=== PATIENT | female | born 1995 | race American Indian/Alaskan Native ===

== ENCOUNTER 2017-01-18 10:51 | Outpatient (CLI) | payer SELFPAY ==
[2017-01-18] MEDS ORDERED: LACTATED RINGERS 500 ML IV ONE (11:40)
[2017-01-18 12:20] LABS: Bilirubin,Urine NEG (Negative); Blood,Urine NEG (Negative); Ketones,Urine NEG (Negative); Leukocyte Esterase,Urine NEG (Negative); Mucus,Urine 1+ /HPF; Nitrite,Urine NEG (Negative); Protein,Urine <15 mg/dL mg/dL (Negative); Urobilinogen,Urine < 2.0 mg/dL (<2.0)
[2017-01-18 12:34] VITALS: BP 108/65
== END 2017-01-18 13:34 | disposition home or self-care (01) ==
LOC: TRG 10:51
PROVIDERS: ATTEND Obstetrics & Gynecology
DX: O47.03 False labor before 37 completed weeks of gestation, third trimester (principal); Z3A.33 33 weeks gestation of pregnancy
CPT/HCPCS: 59025; 81001; J7120

== ENCOUNTER 2017-02-01 22:36 | Outpatient (CLI) | payer MEDICAID ==
[2017-02-01 23:10] VITALS: BP 106/64
[2017-02-01 23:18] LABS: Urine Drugs of Abuse Note Disclamer
[2017-02-01] MEDS ORDERED: LACTATED RINGERS 1,000 ML ONE (23:27)
[2017-02-01 23:33] LABS: Bilirubin,Urine NEG (Negative); Blood,Urine SM (Negative); Ketones,Urine NEG (Negative); Leukocyte Esterase,Urine NEG (Negative); Mucus,Urine FEW /HPF; Nitrite,Urine NEG (Negative); Protein,Urine <15 mg/dL mg/dL (Negative); Urobilinogen,Urine < 2.0 mg/dL (<2.0)
[2017-02-01 23:54] LABS: Hematocrit 33.9 % (30.3-42.9); Hemoglobin 11.3 gm/dl (10.1-14.3); Mean Corpuscular HGB Conc 33 % (30-34); Mean Corpuscular Hemoglobin 27 pg (28-32); Mean Corpuscular Volume 82 fl (79-97); Platelet Count 272 K/mm3 (140-440); Red Blood Count 4.12 M/mm3 (3.65-5.03); Red Cell Distribution Width 15.4 % (13.2-15.2); White Blood Count 11.6 K/mm3 (4.5-11.0)
[2017-02-02 00:20] LABS: HIV-1 Antigen p24 Non React (Non React); HIVR-1/2 Ab Non React (Non React)
[2017-02-02] MEDS ORDERED: LACTATED RINGERS 1,000 ML ONE (00:37)
[2017-02-02] MEDS ORDERED: LACTATED RINGERS 1,000 ML IV ONE (00:47)
[2017-02-02] MEDS ORDERED: LACTATED RINGERS 1,000 ML IV SCH (01:00)
[2017-02-02 01:01] LABS: Basophils % (Manual) 0 % (0.0-1.8); Blastocytes % (Manual) 0 %
[2017-02-02 01:02] LABS: Anisocytosis Few; Diff Status Complete
--- NOTE | 2017-02-02 08:03 | Ultrasound Report ---
BIOPHYSICAL PROFILE: INDICATION: well being. COMPARISON: None similar at this institution. TECHNIQUE: Transabdominal ultrasound with Doppler interrogation. 2 - breathing movements 2 - movements 2 - posture and tone 2 - Qualitative amniotic fluid volume 8 - TOTAL SCORE OF POSSIBLE 8 Heart Rate (bpm) 175
== END 2017-02-02 01:40 | disposition home or self-care (01) ==
LOC: TRG 22:36
PROVIDERS: ATTEND Obstetrics & Gynecology
DX: O47.03 False labor before 37 completed weeks of gestation, third trimester (principal); Z3A.36 36 weeks gestation of pregnancy
CPT/HCPCS: 36415; 59025; 76819; 80307; 81001; 85007; 85025; 85660; 86592; 86706; 86762; 86803; 86850; 86900; 86901; 87806; 96360; 96361; J7120

== ENCOUNTER 2017-02-10 14:29 | Outpatient (CLI) | payer MEDICAID ==
[2017-02-10] MEDS ORDERED: LACTATED RINGERS 1,000 ML ONE (18:08)
[2017-02-10] MEDS ORDERED: LACTATED RINGERS 1,000 ML IV ONE (19:00)
[2017-02-10 21:25] VITALS: BP 109/61
== END 2017-02-10 20:56 | disposition home or self-care (01) ==
LOC: TRG 14:29 → LD 14:32 → TRG 20:56
PROVIDERS: ATTEND Obstetrics & Gynecology
DX: O47.1 False labor at or after 37 completed weeks of gestation (principal); Z3A.38 38 weeks gestation of pregnancy
CPT/HCPCS: 59025; 85460; 85461; 86850; 86900; 86901; 87116; J2790; J7120

== ENCOUNTER 2017-02-17 21:34 | Outpatient (CLI) | payer MEDICAID ==
[2017-02-17 22:07] VITALS: BP 117/59
[2017-02-18] MEDS ORDERED: VISTARIL PO ONE (00:50)
== END 2017-02-18 01:00 | disposition home or self-care (01) ==
LOC: TRG 21:34
PROVIDERS: ATTEND Obstetrics & Gynecology Gynecology
DX: O42.92 Full-term premature rupture of membranes, unspecified as to length of time between rupture and onset of labor (principal); O26.893 Other specified pregnancy related conditions, third trimester; R10.30 Lower abdominal pain, unspecified; Z3A.39 39 weeks gestation of pregnancy
CPT/HCPCS: Q0177

== ENCOUNTER 2017-02-18 04:54 | Inpatient (IN) | payer MEDICAID ==
[2017-02-18] MEDS ORDERED: SUBLIMAZE IV PRN (05:36)
[2017-02-18] MEDS ORDERED: MINERAL OIL PO PRN (05:36)
[2017-02-18] MEDS ORDERED: ePHEDrine SULFATE IV PRN ×2 (05:36→08:30)
[2017-02-18] MEDS ORDERED: XYLOCAINE 2% INFILTRATI ONE ×2 (05:36→11:51)
[2017-02-18] MEDS ORDERED: BRETHINE SUB-Q PRN (05:36)
[2017-02-18] MEDS ORDERED: ZOFRAN IV PRN ×2 (05:36→12:19)
[2017-02-18] MEDS ORDERED: BRETHINE IVP PRN (05:36)
[2017-02-18] MEDS ORDERED: PITOCin/NS 30 UNIT/500ML 30 UNITS/500 ML BAG IV SCH (06:00)
[2017-02-18] MEDS ORDERED: PITOCin/NS 20 UNIT/1000ML DRIP 20 UNITS/1,000 ML BAG IV SCH ×2 (06:00→13:00)
[2017-02-18] MEDS: LACTATED RINGERS 1,000 ML IV SCH ×3 (06:08→10:49)
[2017-02-18 06:12] LABS: Hematocrit 35.4 % (30.3-42.9); Hemoglobin 11.4 gm/dl (10.1-14.3); Mean Corpuscular HGB Conc 32 % (30-34); Mean Corpuscular Hemoglobin 26 pg (28-32); Mean Corpuscular Volume 82 fl (79-97); Platelet Count 288 K/mm3 (140-440); Red Blood Count 4.35 M/mm3 (3.65-5.03); Red Cell Distribution Width 16.3 % (13.2-15.2); White Blood Count 12.9 K/mm3 (4.5-11.0)
--- NOTE | 2017-02-18 07:02 | History and Physical Report ---
History of Present Illness Date of examination: 02/18/17 Date of admission: 02/18/17 06:13 Chief complaint: Painful contractions History of present illness: 21-year-old 001 at 39 weeks presents with above complaints and issues, she had care per patient in [place]. Patient complains initial care was unremarkable. She presented to this hospital 1 month ago and had labs obtained a GBS which was negative. She is Rh- and received a RhoGAM shot. 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 denies: smoking, alcohol abuse, prescription drug abuse, IV drug use - Obstetrical History Expected Date of Delivery: 02/23/17 Actual Gestation: 39 Week(s) 2 Day(s) : 2 Para: 1 Medications and Allergies Allergies Allergy/AdvReac Type Severity Reaction Status Date / Time No Known Allergies Allergy Verified 02/01/17 22:50 Active Meds: Active Medications Fentanyl (Sublimaze) 100 mcg IV Q2H PRN PRN Reason: Labor Pain Last Admin: 02/18/17 06:09 Dose: 100 mcg Lactated Ringer's (Lactated Ringers) 1,000 mls @ 125 mls/hr IV DIRECT MICHELL Last Admin: 02/18/17 06:11 Dose: 125 mls/hr Oxytocin/Sodium Chloride (Pitocin/Ns 20 Unit/1000ml Drip) 20 units in 1,000 mls @ 125 mls/hr IV DIRECT MICHELL Oxytocin/Sodium Chloride (Pitocin/Ns 30 Unit/500ml) 30 units in 500 mls @ 1 mls /hr IV TITR MICHELL; 1 MILLIUNITS/MIN PRN Reason: Protocol Mineral Oil (Mineral Oil) 30 ml PO QHS PRN PRN Reason: Constipation Ondansetron HCl (Zofran) 4 mg IV Q8H PRN PRN Reason: Nausea And Vomiting Review of Systems Constitutional: no fever, no chills, no fatigue, no weakness Cardiovascular: no chest pain, no orthopnea, no syncope, no lightheadedness, no shortness of breath, no dyspnea on exertion, no high blood pressure Respiratory: no cough with sputum, no shortness of breath, no dyspnea on exertion Gastrointestinal: abdominal pain (Painful contractions), no nausea, no vomiting Genitourinary: no vaginal bleeding, no vaginal discharge, no leakage of fluid, no dysuria - Vital Signs Vital signs: Vital Signs Temp Pulse Resp BP 98.4 F 102 H 18 113/64 02/18/17 04:59 02/18/17 04:59 02/18/17 04:59 02/18/17 04:59 Temp Pulse Resp BP Pulse Ox 98.6 F 104 H 18 118/71 99 02/18/17 06:05 02/18/17 06:50 02/18/17 06:09 02/18/17 06:05 02/18/17 06:50 - Physical Exam Cardiovascular: Regular rate, Normal S1, Normal S2 Lungs: Positive: Clear to auscultation, Normal air movement Abdomen: Positive: normal appearance, soft. Negative: distention, tenderness, guarding, rigidity Genitourinary (Female): Positive: normal external genitalia Uterus: Positive: enlarged (EFW ~ 3600) Extremities: Positive: normal - Obstetrical FHR: category 1 Cervical Dilatation: 6 (Per RN ) Results Result Diagrams: 02/18/17 05:45 Abnormal lab results 02/18/17 Range/Units 05:45 WBC 12.9 H (4.5-11.0) K/mm3 MCH 26 L (28-32) pg RDW 16.3 H (13.2-15.2) % All other labs normal. Assessment and Plan A: 21 at 39+2 wks in active labour -Cat 1 tracing P: -Admit -Routine labs -Epidural when necessary -Expectant management -Anticipate normal vaginal delivery - Patient Problems (1) 39 weeks gestation of Current Visit: Yes Status: Acute (2) Active labor at term Current Visit: Yes Status: Acute
[2017-02-18] MEDS ORDERED: fentaNYL-BUPIV 2 MCG/ML-0.125% 200 MCG/100 ML BAG EPIDURAL ONE (07:35)
--- NOTE | 2017-02-18 08:11 | Anesthesia Day of Surgery ---
Anesthesia Day of Surgery - Day of Surgery Patient Examined: Yes Patient H&P Reviewed: Yes Patient is NPO: Yes
--- NOTE | 2017-02-18 08:11 | Anesthesia Consultation ---
Anesthesia Consult and Med Hx Date of service: 02/18/17 - Airway Anesthetic Teeth Evaluation: Good ROM Head & Neck: Adequate Mental/Hyoid Distance: Adequate Mallampati Class: Class II Intubation Access Assessment: Probably Good - Pre-Operative Health Status ASA Pre-Surgery Classification: ASA2 Proposed Anesthetic Plan: Epidural, Spinal - Pulmonary Hx Asthma: No - Cardiovascular System Hx Hypertension: No - Central Nervous System Hx Seizures: No Hx Psychiatric Problems: Yes (ANXIETY) - Endocrine Hx Renal Disease: No Hx Hypothyroidism: No Hx Hyperthyroidism: No - Hematic Hx Anemia: No Hx Sickle Cell Disease: No - Other Systems Hx Alcohol Use: No
[2017-02-18] MEDS ORDERED: fentaNYL-BUPIV 2 MCG/ML-0.125% 200 MCG/100 ML BAG EPIDURAL SCH (09:00)
[2017-02-18] MEDS ORDERED: NARCAN 2 MG/2 ML IV PRN (09:00)
--- NOTE | 2017-02-18 10:50 | Progress Note ---
Assessment and Plan A: 21 at 39+2 wks in active labour -Cat 1 tracing P: -Start Pit -Anticipate - Patient Problems (1) 39 weeks gestation of Current Visit: Yes Status: Acute (2) Active labor at term Current Visit: Yes Status: Acute Subjective - Subjective Date of service: 02/18/17 Interval history: No significant cervical change, ~ 7-8/60/0 Patient reports: movement normal, contractions, no vaginal bleeding Objective - Vital Signs Vital Signs: Vital Signs - 12hr 02/18/17 02/18/17 02/18/17 04:59 06:05 06:09 Temperature 98.4 F 98.6 F Pulse Rate 102 H 108 H Pulse Rate [ 108 H Left From Monitor] Respiratory 18 18 18 Rate Blood Pressure 113/64 118/71 Blood Pressure 118/71 [Right Arm] O2 Sat by Pulse 98 Oximetry 02/18/17 02/18/17 02/18/17 06:10 06:15 06:20 Temperature Pulse Rate 107 H 93 H 104 H Pulse Rate [ Left From Monitor] Respiratory Rate Blood Pressure Blood Pressure [Right Arm] O2 Sat by Pulse 96 97 96 Oximetry 02/18/17 02/18/17 02/18/17 06:25 06:30 06:35 Temperature Pulse Rate 96 H 93 H 95 H Pulse Rate [ Left From Monitor] Respiratory Rate Blood Pressure Blood Pressure [Right Arm] O2 Sat by Pulse 97 97 96 Oximetry 02/18/17 02/18/17 02/18/17 06:40 06:45 06:50 Temperature Pulse Rate 94 H 89 104 H Pulse Rate [ Left From Monitor] Respiratory Rate Blood Pressure Blood Pressure [Right Arm] O2 Sat by Pulse 97 97 99 Oximetry 02/18/17 02/18/17 02/18/17 06:55 07:00 07:05 Temperature Pulse Rate 98 H 96 H 104 H Pulse Rate [ Left From Monitor] Respiratory Rate Blood Pressure Blood Pressure [Right Arm] O2 Sat by Pulse 100 99 98 Oximetry 02/18/17 02/18/17 02/18/17 07:10 07:15 07:20 Temperature Pulse Rate 115 H 100 H 96 H Pulse Rate [ Left From Monitor] Respiratory Rate Blood Pressure Blood Pressure [Right Arm] O2 Sat by Pulse 100 99 98 Oximetry 02/18/17 02/18/17 02/18/17 07:25 07:30 07:35 Temperature Pulse Rate 91 H 96 H 96 H Pulse Rate [ Left From Monitor] Respiratory Rate Blood Pressure Blood Pressure [Right Arm] O2 Sat by Pulse 97 99 98 Oximetry 02/18/17 02/18/17 02/18/17 07:40 07:45 07:50 Temperature Pulse Rate 98 H 100 H 105 H Pulse Rate [ Left From Monitor] Respiratory Rate Blood Pressure Blood Pressure [Right Arm] O2 Sat by Pulse 99 99 100 Oximetry 02/18/17 02/18/17 02/18/17 07:55 08:00 08:04 Temperature 98.2 F Pulse Rate 109 H 100 H 96 H Pulse Rate [ Left From Monitor] Respiratory Rate Blood Pressure 117/69 Blood Pressure [Right Arm] O2 Sat by Pulse 100 99 Oximetry 02/18/17 02/18/17 02/18/17 08:05 08:06 08:08 Temperature Pulse Rate 98 H 98 H 95 H Pulse Rate [ Left From Monitor] Respiratory Rate Blood Pressure 117/73 110/66 Blood Pressure [Right Arm] O2 Sat by Pulse 99 Oximetry 02/18/17 02/18/17 02/18/17 08:10 08:12 08:14 Temperature Pulse Rate 103 H 95 H 104 H Pulse Rate [ Left From Monitor] Respiratory Rate Blood Pressure 115/68 111/66 112/64 Blood Pressure [Right Arm] O2 Sat by Pulse 98 Oximetry 02/18/17 02/18/17 02/18/17 08:15 08:16 08:18 Temperature Pulse Rate 106 H 99 H 96 H Pulse Rate [ Left From Monitor] Respiratory Rate Blood Pressure 114/65 114/67 Blood Pressure [Right Arm] O2 Sat by Pulse 99 Oximetry 02/18/17 02/18/17 02/18/17 08:20 08:22 08:24 Temperature Pulse Rate 95 H 89 91 H Pulse Rate [ Left From Monitor] Respiratory Rate Blood Pressure 98/56 99/56 99/56 Blood Pressure [Right Arm] O2 Sat by Pulse 99 Oximetry 02/18/17 02/18/17 02/18/17 08:25 08:26 08:28 Temperature Pulse Rate 92 H 95 H 92 H Pulse Rate [ Left From Monitor] Respiratory Rate Blood Pressure 99/57 100/57 Blood Pressure [Right Arm] O2 Sat by Pulse 99 Oximetry 02/18/17 02/18/17 02/18/17 08:30 08:33 08:35 Temperature Pulse Rate 87 92 H Pulse Rate [ Left From Monitor] Respiratory 20 Rate Blood Pressure 97/54 97/54 Blood Pressure [Right Arm] O2 Sat by Pulse 98 99 Oximetry 02/18/17 02/18/17 02/18/17 08:40 08:45 08:50 Temperature Pulse Rate 94 H 88 89 Pulse Rate [ Left From Monitor] Respiratory Rate Blood Pressure 99/53 Blood Pressure [Right Arm] O2 Sat by Pulse 98 98 98 Oximetry 02/18/17 02/18/17 02/18/17 08:55 09:00 09:05 Temperature Pulse Rate 95 H 89 95 H Pulse Rate [ Left From Monitor] Respiratory Rate Blood Pressure 100/56 Blood Pressure [Right Arm] O2 Sat by Pulse 98 97 97 Oximetry 02/18/17 02/18/17 02/18/17 09:10 09:15 09:20 Temperature Pulse Rate 95 H 93 H 94 H Pulse Rate [ Left From Monitor] Respiratory Rate Blood Pressure 100/54 Blood Pressure [Right Arm] O2 Sat by Pulse 98 97 96 Oximetry 02/18/17 02/18/17 02/18/17 09:25 09:30 09:35 Temperature Pulse Rate 100 H 96 H 98 H Pulse Rate [ Left From Monitor] Respiratory Rate Blood Pressure 101/57 Blood Pressure [Right Arm] O2 Sat by Pulse 97 98 99 Oximetry 02/18/17 02/18/17 02/18/17 09:40 09:45 09:50 Temperature Pulse Rate 92 H 93 H 90 Pulse Rate [ Left From Monitor] Respiratory Rate Blood Pressure 104/58 Blood Pressure [Right Arm] O2 Sat by Pulse 98 99 99 Oximetry 02/18/17 02/18/17 02/18/17 09:55 10:00 10:01 Temperature Pulse Rate 90 89 113 H Pulse Rate [ Left From Monitor] Respiratory Rate Blood Pressure 106/57 Blood Pressure [Right Arm] O2 Sat by Pulse 99 98 Oximetry 02/18/17 02/18/17 02/18/17 10:03 10:05 10:10 Temperature Pulse Rate 54 L 105 H 105 H Pulse Rate [ Left From Monitor] Respiratory Rate Blood Pressure Blood Pressure [Right Arm] O2 Sat by Pulse 84 100 99 Oximetry 02/18/17 02/18/17 02/18/17 10:15 10:20 10:22 Temperature Pulse Rate 99 H 103 H 101 H Pulse Rate [ Left From Monitor] Respiratory Rate Blood Pressure 98/54 Blood Pressure [Right Arm] O2 Sat by Pulse 99 97 94 Oximetry 02/18/17 02/18/17 02/18/17 10:25 10:30 10:35 Temperature Pulse Rate 91 H 96 H 99 H Pulse Rate [ Left From Monitor] Respiratory Rate Blood Pressure Blood Pressure [Right Arm] O2 Sat by Pulse 94 99 98 Oximetry 02/18/17 02/18/17 02/18/17 10:36 10:40 10:45 Temperature Pulse Rate 102 H 114 H 103 H Pulse Rate [ Left From Monitor] Respiratory Rate Blood Pressure 100/59 Blood Pressure [Right Arm] O2 Sat by Pulse 100 99 Oximetry - Exam FHR: category 1 Cervical Dilatation: 7.5 (Per RN) station: 0 - Labs Labs: Abnormal Labs 02/18/17 05:45 WBC 12.9 H MCH 26 L RDW 16.3 H Laboratory Results - last 24 hr 02/18/17 02/18/17 05:45 05:45 WBC 12.9 H RBC 4.35 Hgb 11.4 Hct 35.4 MCV 82 MCH 26 L MCHC 32 RDW 16.3 H Plt Count 288 Blood Type O NEGATIVE Antibody Screen Positive Antibody Identification Anti-D (Passively Aquired)
--- NOTE | 2017-02-18 12:18 | Procedure Note ---
OB Delivery Note - Delivery Date of Delivery: 02/18/17 Surgeon: RAPHAEL NICHOLAS Estimated blood loss: 200cc - Vaginal Delivery presentation: vertex Delivery position: OA Intrapartum events: no care (Limited PNC) Delivery induction: none Delivery monitor: external FHT, external uterine Route of delivery: Delivery placenta: spontaneous Delivery cord: 3 umbilical vessels Episiotomy: none Delivery laceration: 3rd degree, vaginal side wall (Left ) Delivery repair: vicryl Anesthesia: epidural Delivery comments: Patients perineum shows sign of prior repair from a laceration - Infant A at 1 minute: 8 at 5 minutes: 9 Gender: Female (Del @ 11:57, weight is 6#15 or 3140 g)
[2017-02-18] MEDS ORDERED: MILK OF MAGNESIA PO PRN (12:19)
[2017-02-18] MEDS ORDERED: ANUCORT-HC PR PRN (12:19)
[2017-02-18] MEDS ORDERED: LANSINOH TP PRN (12:19)
[2017-02-18] MEDS ORDERED: TUCKS PAD TP PRN (12:19)
[2017-02-18] MEDS ORDERED: TYLENOL PO PRN (12:19)
[2017-02-18] MEDS ORDERED: BENADRYL PO PRN (12:19)
[2017-02-18] MEDS ORDERED: DULCOLAX PR PRN (12:19)
[2017-02-18] MEDS ORDERED: DERMOPLAST TP PRN (12:19)
[2017-02-18] MEDS ORDERED: PHENERGAN PO PRN (12:19)
[2017-02-18] MEDS ORDERED: PHENERGAN PR PRN (12:19)
[2017-02-18] MEDS ORDERED: SENOKOT S PO SCH (13:00)
[2017-02-18] MEDS ORDERED: SODIUM CHLORIDE FLUSH SYRINGE 10 ML IV NR (13:00)
[2017-02-18] MEDS: MOTRIN PO SCH ×2 (16:06→22:40)
[2017-02-18] MEDS: NORCO 5/325 PO PRN ×2 (16:08→22:40)
[2017-02-18] MEDS: FEOSOL PO SCH (22:40)
[2017-02-18] MEDS: COLACE PO SCH (22:40)
[2017-02-19 06:06] LABS: Hematocrit 31.5 % (30.3-42.9); Hemoglobin 10.2 gm/dl (10.1-14.3)
[2017-02-19] MEDS: MOTRIN PO SCH ×3 (07:00→21:19)
--- NOTE | 2017-02-19 09:10 | Progress Note ---
Subjective Date of service: 02/19/17 Interval history: 1st day after normal vaginal delivery Patient is in the bed, comfortable. Pain is well controlled with pain meds. Ambulated well. No residual neurological deficit. No anesthesia complication Objective - Constitutional Vitals: Vital Signs - 12hr 02/19/17 01:15 Temperature 98.1 F Pulse Rate [ 103 H Left From Monitor] Respiratory 20 Rate Blood Pressure 120/77 [Right Arm] - Labs CBC & Chem 7: 02/19/17 05:47
--- NOTE | 2017-02-19 10:14 | Progress Note ---
Assessment and Plan - Patient Problems (1) (normal spontaneous vaginal delivery) Onset Date: 02/19/17 Current Visit: Yes Status: Acute Plan to address problem: A: S/P - PPD #1 Doing well P: May go home tomorrow. Subjective - Subjective Date of service: 02/19/17 Principal diagnosis: s/p - PPD #1 Interval history: Pt is feeling well without complaints. Bleeding improved. Patient reports: appetite normal, voiding normally, pain well controlled, flatus , ambulating normally : doing well, nursing well Objective - Vital Signs Latest vital signs: Vital Signs Temp Pulse Pulse Resp BP BP Pulse Ox 02/19/17 01:15 98.1 F 103 H 20 120/77 02/18/17 20:35 99.3 F 111 H 20 124/62 02/18/17 16:30 98.2 F 86 18 113/66 02/18/17 15:00 99.1 F 111 H 20 124/62 02/18/17 14:05 105 H 119/68 02/18/17 13:50 109 H 125/67 02/18/17 13:35 109 H 127/60 02/18/17 13:20 108 H 112/60 02/18/17 13:05 111 H 123/64 02/18/17 12:50 99 H 122/76 02/18/17 12:35 99 H 142/63 02/18/17 12:05 116 H 118/61 02/18/17 12:02 114 H 121/60 02/18/17 12:00 98.7 F 02/18/17 11:51 114 H 123/84 02/18/17 11:45 131 H 100 02/18/17 11:40 105 H 99 02/18/17 11:36 107 H 109/66 02/18/17 11:35 107 H 99 02/18/17 11:30 103 H 99 02/18/17 11:25 107 H 100 02/18/17 11:20 106 H 108/63 99 02/18/17 11:15 103 H 100 02/18/17 11:10 105 H 100 02/18/17 11:05 111 H 107/60 100 02/18/17 11:00 101 H 100 02/18/17 10:55 105 H 100 02/18/17 10:51 111 H 101/61 02/18/17 10:50 107 H 99 02/18/17 10:45 103 H 99 02/18/17 10:40 114 H 100 02/18/17 10:36 102 H 100/59 02/18/17 10:35 99 H 98 02/18/17 10:30 96 H 99 02/18/17 10:25 91 H 94 02/18/17 10:22 101 H 98/54 94 02/18/17 10:20 103 H 97 02/18/17 10:15 99 H 99 Intake and Output 02/18/17 02/19/17 02/19/17 22:59 06:59 14:59 Intake Total 1095 360 Output Total 550 Balance 545 360 Intake: IV 375 PITOCin/NS 20 UNIT/1000ML 375 DRIP 20 units In 1,000 ml @ 250 mls/hr IV DIRECT MICHELL Rx#:[id number] Oral 720 360 Output: Urine 550 Void 550 Other: Total, Intake Amount 240 120 Total, Output Amount 200 # Voids Void 1 1 - Exam Breasts: Present: deferred Cardiovascular: Present: Regular rate Lungs: Present: Clear to auscultation Abdomen: Present: normal appearance, soft Uterus: Present: normal, firm, fundal height below umbilicus Extremities: Present: normal - Labs Labs: Laboratory Tests 02/18/17 02/18/17 02/19/17 05:45 05:45 05:47 WBC 12.9 H RBC 4.35 Hgb 11.4 10.2 Hct 35.4 31.5 MCV 82 MCH 26 L MCHC 32 RDW 16.3 H Plt Count 288 Blood Type O NEGATIVE Antibody Screen Positive Antibody Identification Anti-D (Passively Aquired)
--- NOTE | 2017-02-19 10:15 | Discharge Summary ---
Providers - Providers Date of Admission: 02/18/17 06:13 Date of discharge: 02/20/17 Attending physician: RAPHAEL NICHOLAS Primary care physician: RAPHAEL NICHOLAS Hospitalization Reason for admission: active labor, IUP at term Delivery: Episiotomy: none Laceration: 3rd degree Other procedures: none complications: none Discharge diagnosis: IUP at term delivered [place] baby: female Hospital course: Unremarkable. Condition at discharge: Good Disposition: DISCHARGED TO HOME OR SELFCARE - Discharge Diagnoses (1) (normal spontaneous vaginal delivery) Status: Resolved Plan - Discharge Medications Prescriptions: HYDROcodone/APAP 5-325 [[place] 5/325] 1 each PO Q6HR PRN #30 tablet PRN Reason: Pain Ibuprofen [Motrin 600 MG tab] 600 mg PO Q8H PRN #30 tablet PRN Reason: Pain Multivitamin with Iron [Multivitamins with Iron] 1 each PO DAILY #30 tablet - Provider Discharge Summary Activity: routine, no sex for 6 weeks, no heavy lifting 4 weeks, no strenuous exercise Diet: routine Instructions: routine Additional instructions: [] Smoking cessation referral if applicable(refer to patient education folder for contact #) [] Refer to [facility]'s [facility] Booklet Call your doctor immediately for: * Fever > 100.5 * Heavy vaginal bleeding ( >1 pad per hour) * Severe persistent headache * Shortness of breath * Reddened, hot, painful area to leg or breast * Drainage or odor from incision. * Keep incision clean and dry at all times and follow doctor's instructions regarding bathing/showering - Follow up plan Follow up: RAPHAEL NICHOLAS MD [Primary Care Provider] - 6 Weeks
[2017-02-19] MEDS: COLACE PO SCH ×2 (10:18→21:20)
[2017-02-19] MEDS: PRENATAL VITAMIN PO SCH (10:18)
[2017-02-19] MEDS: FEOSOL PO SCH ×2 (10:18→21:19)
[2017-02-19] MEDS ORDERED: BOOSTRIX IM ONE (12:19)
[2017-02-19] MEDS ORDERED: M-M-R II VACCINE SUB-Q ONE (12:19)
[2017-02-19] MEDS: NORCO 5/325 PO PRN ×2 (15:13→21:20)
[2017-02-20] MEDS: NORCO 5/325 PO PRN (04:25)
[2017-02-20] MEDS: MOTRIN PO SCH (04:26)
[2017-02-20] MEDS: COLACE PO SCH (10:32)
[2017-02-20] MEDS: FEOSOL PO SCH (10:32)
[2017-02-20] MEDS: PRENATAL VITAMIN PO SCH (10:32)
[2017-02-20 12:56] VITALS: BP 120/70
== END 2017-02-20 12:35 | disposition home or self-care (01) | DRG 775 ==
LOC: TRG 04:54 → LD 06:13 → OB 15:45
PROVIDERS: ADMIT Obstetrics & Gynecology Gynecology; ATTEND Obstetrics & Gynecology Gynecology
PROC: 10E0XZZ Delivery of Products of Conception, External Approach (ICD-10-PCS; principal; 2017-02-18)
PROC: 0UQGXZZ Repair Vagina, External Approach (ICD-10-PCS; 2017-02-18)
PROC: 00HU33Z Insertion of Infusion Device into Spinal Canal, Percutaneous Approach (ICD-10-PCS; 2017-02-18)
PROC: 3E0R3CZ (ICD-10-PCS; 2017-02-18)
PROC: 3E0234Z Introduction of Serum, Toxoid and Vaccine into Muscle, Percutaneous Approach (ICD-10-PCS; 2017-02-18)
DX: O99.344 Other mental disorders complicating childbirth (principal); O70.20 Third degree perineal laceration during delivery, unspecified; F41.9 Anxiety disorder, unspecified; Z3A.39 39 weeks gestation of pregnancy; Z37.0 Single live birth; Z23 Encounter for immunization; O09.30 Supervision of pregnancy with insufficient antenatal care, unspecified trimester
CPT/HCPCS: 36415; 85014; 85018; 85027; 86850; 86870; 86900; 86901; 99211; A6250; G0463; J2590; J3010; J7120